=== PATIENT | male | born 1995 | race Caucasian/White ===

== ENCOUNTER 2017-08-27 08:19 | Emergency (ER) | payer SELFPAY ==
[2017-08-27] MEDS: IBUPROFEN 800 MG TAB PO (09:22)
== END 2017-08-27 11:20 | disposition home or self-care (01) ==
LOC: FTE 08:19
DX: S49.92XA Unspecified injury of left shoulder and upper arm, initial encounter (principal); X58.XXXA Exposure to other specified factors, initial encounter; Y92.811 Bus as the place of occurrence of the external cause
CPT/HCPCS: 73030; 73060; 99283-25